=== PATIENT | male | born 1960 | race Caucasian/White ===

== ENCOUNTER 2016-08-17 19:24 | Observation (INO) ==
[2016-08-17] MEDS ORDERED: HYDROmorphone 2 MG/1 ML VIAL IV STA (20:25)
[2016-08-17] MEDS ORDERED: ONDANSETRON 4 MG/2 ML VIAL IV STA (20:25)
[2016-08-17] MEDS ORDERED: LACTATED RINGERS 1,000 ML IV STA (20:25)
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
[2016-08-17] MEDS ORDERED: HYDROmorphone 2 MG/1 ML VIAL ONE (21:14)
[2016-08-17] MEDS ORDERED: ONDANSETRON 4 MG/2 ML VIAL ONE (21:15)
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
[2016-08-17 22:14] LABS: Barbiturates Screen,Urine Negative (Negative); Benzodiazepines Screen,Urine Negative (Negative); Cannabinoid Screen,Urine Negative (Negative); Opiate Screen,Urine Negative (Negative); Phencyclidine Screen,Urine Negative (Negative)
[2016-08-17] MEDS ORDERED: ACETAMINOPHEN 500 MG TABLET ONE (23:23)
[2016-08-17] MEDS ORDERED: ACETAMINOPHEN 500 MG TABLET PO STA (23:26)
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
[2016-08-17] MEDS ORDERED: ACETAMINOPHEN 325 MG TABLET PO PRN (23:43)
[2016-08-17] MEDS ORDERED: ONDANSETRON 4 MG/2 ML VIAL IV PRN (23:43)
[2016-08-18] MEDS: SODIUM CHLORIDE 0.9% 1,000 ML IV SCH (00:58)
[2016-08-18] MEDS: HYDROmorphone 2 MG/1 ML VIAL IV PRN ×2 (00:59→05:13)
[2016-08-18 01:11] LABS: Alanine Aminotransferase 85 U/L (16-61); Albumin 3.8 G/DL (3.4-5.0); Alkaline Phosphatase 90 U/L (45-117); Aspartate Amino Transferase 98 U/L (0-37); Bilirubin,Total < 0.39 MG/DL (0.2-1.0); Blood Urea Nitrogen 9 MG/DL (7-18); Calcium 8.9 MG/DL (8.5-10.1); Glucose 112 MG/DL (74-106); Osmolality,Calculated 280.3 MOS/KG (273-304); Potassium 4.5 MMOL/L (3.5-5.1); Sodium 141 MMOL/L (136-145)
[2016-08-18 01:17] LABS: Basophils % 0.5 % (0.0-0.8); Eosinophils # 0.1 10*3/uL (0.0-0.87); Eosinophils % 1.1 % (0.00-10.9); Hematocrit 42.6 VOL% (42.0-52.0); Hemoglobin 13.9 GM/DL (14.0-18.0); Immature Granulocytes % 0.6 %; Immature Granulocytes Absolute 0.05 #; Lymphocytes # 2.2 10*3/uL (1.4-4.0); Lymphocytes % 24.3 % (21.2-54.2); Mean Corpuscular HGB Conc 32.6 GM/DL (32-36); Mean Corpuscular Hemoglobin 26 PG (27-34); Monocytes # 0.8 10*3/uL (0.11-0.8); Monocytes % 9.4 % (1.7-12.7); Neutrophils # 5.7 10*3/uL (1.4-7.4); Neutrophils % 64.1 % (38.7-73.9); Platelet Count 265 T/CUMM (130-400); Red Blood Count 5.26 MC/CUMM (3.8-5.5); Red Cell Distribution Width 14.5 % (9.3-17.3); White Blood Count 8.8 T/CUMM (4-12)
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
--- NOTE | 2016-08-18 09:07 | XRay Report ---
XR chest 2V Date: 08/18/2016 4:00 AM History: Pulmonary contusion Comparison: 08/17/2016 Technique: PA and lateral chest Findings: The heart is borderline in size. Right TRAPPER BIRD shunt catheter. Progressive parenchymal findings at the lung bases with no pneumothorax. Stable mediastinum and osseous structures. Impression: Progressive atelectasis at the lung bases with residual probable pulmonary contusion. Right TRAPPER BIRD shunt catheter. PROCEDURE INTERPRETED AT [facility] DEPARTMENT OF RADIOLOGY Final Report Signed by: Dr. Kailee Crawford
[2016-08-18] MEDS ORDERED: HYDROmorphone 2 MG/1 ML VIAL IV PRN (17:20)
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
[2016-08-18] MEDS ORDERED: KETOROLAC 15 MG/1 ML VIAL IV ONE (19:46)
--- NOTE | 2016-08-18 20:36 | XRay Report ---
Exam: XR chest 1V Date: 08/18/2016 7:53 PM Comparison: 08/18/2016 Indication: Headache, chest trauma Technique:[PA chest] Findings: The heart is smaller in size with stable right TAX SERVICES MANAGER shunt catheter. Decreased parenchymal finding at the lung bases with no pneumothorax. Stable mediastinum and osseous structures. Impression: Reduced atelectasis/contusion at the lung bases with no pneumothorax. Stable right TAX SERVICES MANAGER shunt catheter. PROCEDURE INTERPRETED AT [facility] DEPARTMENT OF RADIOLOGY Final Report Signed by: Dr. Kailee Crawford
--- NOTE | 2016-08-18 20:38 | XRay Report ---
Exam: XR abdomen 1V Date: 08/18/2016 7:53 PM Comparison: 05/30/2016 Indication: Headache, evaluate MOLDER MEAT shunt catheter Technique:[Supine abdomen] Findings: Nonobstructed bowel gas pattern. 7 mm right midpole renal calculus with persistent multiple calcifications in the pelvis. The tip of the MOLDER MEAT shunt catheter projects slightly lower in location in the left pelvis near the inferior SI joint location. Impression: Nonobstructed bowel gas pattern. The tip of the MOLDER MEAT shunt catheter projects just below the level of the left SI joint. 7 mm right midpole renal calculus. PROCEDURE INTERPRETED AT [facility] DEPARTMENT OF RADIOLOGY Final Report Signed by: Dr. Kailee Crawford
--- NOTE | 2016-08-18 20:43 | CT Report ---
Referring physician: CLAUDIO Moreira III Exam: CT brain without contrast Date: 08/18/2016 Comparison: 08/17/2016 Reason: Severe headache, head trauma, PARAPLANNER shunt Technique: Axial images of the head were obtained without the use of contrast. Total DLP was 914.60 mGy*cm. Findings: No hydrocephalus or midline shift is present. Stable right parietal PARAPLANNER shunt catheter with tip projecting adjacent to the left frontal horn. Previous midline occipital craniotomy with additional postoperative findings in the posterior ring of C1. There is no evidence of an acute infarction, recent intracranial hemorrhage or abnormal mass effect. The mastoid air cells are clear. Persistent air-fluid level in the visualized right maxillary sinus. Impression: No acute intracranial abnormality is identified. Right PARAPLANNER shunt catheter which is stable in position. Previous midline occipital craniotomy and resection of the posterior ring of C1. Right maxillary sinusitis. The CT exam was performed using one or more of the following dose reduction techniques: Automated exposure control and adjustment of the mA and/or kV according to patient size. PROCEDURE INTERPRETED AT [facility] DEPARTMENT OF RADIOLOGY Final Report Signed by: Dr. Kailee Crawford
[2016-08-18] MEDS: METHADONE 10 MG TABLET PO SCH (21:01)
[2016-08-18] MEDS: INSULIN LISPRO 100 UNIT/ML SUBCUT SCH (21:30)
[2016-08-18] MEDS: Desvenlafaxine Succinate [Pristiq] 100 MG PO SCH (21:31)
[2016-08-19] MEDS: SODIUM CHLORIDE 0.9% 1,000 ML IV SCH ×2 (01:37→07:33)
[2016-08-19 06:15] LABS: Basophils % 0.3 % (0.0-0.8); Eosinophils # 0.1 10*3/uL (0.0-0.87); Eosinophils % 1.4 % (0.00-10.9); Hematocrit 41.9 VOL% (42.0-52.0); Hemoglobin 13.1 GM/DL (14.0-18.0); Immature Granulocytes % 0.3 %; Immature Granulocytes Absolute 0.02 #; Lymphocytes # 2.2 10*3/uL (1.4-4.0); Mean Corpuscular HGB Conc 31.3 GM/DL (32-36); Mean Corpuscular Hemoglobin 27 PG (27-34); Mean Platelet Volume 9.4 FL (9.6-12.0); Monocytes # 0.4 10*3/uL (0.11-0.8); Neutrophils # 3.2 10*3/uL (1.4-7.4); Platelet Count 193 T/CUMM (130-400); Red Blood Count 4.93 MC/CUMM (3.8-5.5); Red Cell Distribution Width 14.6 % (9.3-17.3); White Blood Count 5.9 T/CUMM (4-12)
[2016-08-19 06:54] LABS: Calcium 8.1 MG/DL (8.5-10.1); Osmolality,Calculated 280.1 MOS/KG (273-304); Potassium 4.2 MMOL/L (3.5-5.1)
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
[2016-08-19] MEDS: INSULIN LISPRO 100 UNIT/ML SUBCUT SCH (07:33)
[2016-08-19 07:53] VITALS: BP 122/85
[2016-08-19] MEDS: Desvenlafaxine Succinate [Pristiq] 100 MG PO SCH (08:04)
[2016-08-19] MEDS: METHADONE 10 MG TABLET PO SCH (08:35)
[2016-08-19] MEDS ORDERED: LISINOPRIL 2.5 MG TABLET PO SCH (09:00)
[2016-08-19] MEDS ORDERED: Naloxegol Oxalate [Movantik] 25 MG PO SCH (09:00)
[2016-08-19] MEDS ORDERED: MELOXICAM 7.5 MG TABLET PO SCH (09:00)
[2016-08-19] MEDS ORDERED: PRAMIPEXOLE 0.25 MG TABLET PO SCH (09:00)
== END 2016-08-19 10:55 | disposition home or self-care (01) ==
LOC: N.ED 19:24 → N.EDINP 19:24 → N.3E 08-18 00:17
PROVIDERS: ADMIT Surgery; ATTEND Surgery